=== PATIENT | female | born 1955 | race Caucasian/White ===

== ENCOUNTER 2019-05-21 04:01 | Emergency (ER) | payer BC ==
[~2019-05-21] VITALS: Ht 167.6 cm; Wt 72.7 kg
[2019-05-21] MEDS ORDERED: SYNT137T7 PO (04:14)
[2019-05-21] MEDS ORDERED: LIPI20TA PO (04:14)
[2019-05-21 04:26] LABS: BASO % 0.9 % (0.0-1.0); EOS # 0.2 10^3/uL (0.0-0.50); HEMATOCRIT 42.5 % (36.0-47.0); HEMOGLOBIN 14.2 g/dl (12.0-15.5); LYMPH # 1.8 10^3/uL (1.5-4.5); LYMPH % 51.7 % (24.0-44.0); MEAN CORPUSCULAR HGB CONC 33.4 g/dl (32.0-36.5); MEAN CORPUSCULAR VOLUME 95.7 fl (80.0-96.0); MONO # 0.4 10^3/uL (0.0-0.8); MONO % 9.9 % (0.0-5.0); NEUTROPHILS # 1.1 10^3/uL (1.8-7.7); NEUTROPHILS % 31.2 % (36.0-66.0); PLATELET COUNT, AUTOMATED 226 10^3/uL (150-450); RED BLOOD COUNT 4.44 10^6/uL (4.00-5.40); WHITE BLOOD COUNT 3.5 10^3/uL (4.0-10.0)
[2019-05-21 04:36] LABS: INR 0.9; PROTHROMBIN TIME 11.9 SECONDS (11.8-14.0)
[2019-05-21 05:02] LABS: ALBUMIN 3.9 GM/DL (3.2-5.2); ALT/SGPT 34 U/L (12-78); BILIRUBIN,TOTAL 0.3 MG/DL (0.2-1.0); BLOOD UREA NITROGEN 20 MG/DL (7-18); CALCIUM LEVEL 8.7 MG/DL (8.8-10.2); CARBON DIOXIDE LEVEL 27 MEQ/L (21-32); CHLORIDE LEVEL 109 MEQ/L (98-107); CK-MB VALUE MASS 1.5 NG/ML (<3.6); CPK CREATINE PHOSPHOKINASE 93 U/L (26-192); CREATININE FOR GFR 0.85 MG/DL (0.55-1.30); GLOMERULAR FILTRATION RATE > 60.0 (>45); GLUCOSE, FASTING 92 MG/DL (70-100); LIPASE 186 U/L (73-393); MB/CK RELATIVE INDEX 1.61 (< OR =4); POTASSIUM SERUM 3.8 MEQ/L (3.5-5.1); SODIUM LEVEL 143 MEQ/L (136-145); TOTAL PROTEIN 6.9 GM/DL (6.4-8.2); TROPONIN I < 0.02 NG/ML (< 0.10)
[2019-05-21] MEDS ORDERED: ASPIRIN 81 MG CHEW TABLET PO ONE (06:00)
[2019-05-21] MEDS ORDERED: ISOVUE-370 76% 100ML VIAL (Q9967) As Ordered ONE (06:05)
--- NOTE | 2019-05-21 06:43 | REPVR ---
EXAM: CT Angiography Chest With Contrast EXAM DATE/TIME: 05/21/2019 6:00 AM CLINICAL HISTORY: 63 years old, female; Chest pain; Type not specified; Additional info: Chest pain R/O pe TECHNIQUE: Imaging protocol: Axial computed tomographic angiography images of the chest with intravenous contrast using CT angiography protocol. Coronal and sagittal reformatted images were created and reviewed. 3D rendering: MIP reconstructed images were created and reviewed. Radiation optimization: All CT scans at this facility use at least one of these dose optimization techniques: automated exposure control; mA and/or kV adjustment per patient size (includes targeted exams where dose is matched to clinical indication); or iterative reconstruction. Contrast material: ISO;Contrast volume: 75 ml;Contrast route: AC; COMPARISON: CR PORTABLE CHEST X-RAY 05/21/2019 4:19 AM FINDINGS: Pulmonary arteries: The main pulmonary artery measures 22 mm. No pulmonary embolism is identified. Aorta: The ascending thoracic aorta measures 30 mm. Other arteries: The left vertebral artery originates directly from the arch. Lungs: Right middle lobe irregular only nodule which appears to branch with only one feeding vessel and measures approximately 10 mm. Pleural space: Unremarkable. No pneumothorax. No pleural effusion. Heart: Unremarkable. No cardiomegaly. No pericardial effusion. Stomach and bowel: Colonic diverticulosis. Lymph nodes: Unremarkable. No enlarged lymph nodes. Bones/joints: Unremarkable. No acute fracture. Soft tissues: Unremarkable. IMPRESSION: 1. Colonic diverticulosis. 2. Right middle lobe noncalcified irregular nodule measuring approximately 10 mm. For both low risk and high risk patients, consider CT at 3 months, PET/CT or biopsy. (Riddhi et al., Fleischner Society, 2017). 3. No pulmonary embolism is identified. Electronically signed by: Braden James On 05/21/2019 06:43:01 AM
--- NOTE | 2019-05-21 08:17 | ECGEPIP ---
[facility] - ED Test Date: 2019-05-21 Pat Name: JEFF VOGEL Department: Room: - Gender: Female Building Operator: : 1955 Requested By: YOLANDA Root Order Number: [id number] Reading MD: Pamela Clayton Measurements Intervals [place] Rate: 86 P: 23 MO: 138 QRS: 2 QRSD: 96 T: 12 QT: 375 QTc: 451 Interpretive Statements SINUS RHYTHM MINIMAL ST DEPRESSION No prior Electronically Signed on 05-21-2019 8:16:57 EDT by Pamela Clayton
[2019-05-21 10:44] LABS: CK-MB VALUE MASS 1.4 NG/ML (<3.6); CPK CREATINE PHOSPHOKINASE 75 U/L (26-192); MB/CK RELATIVE INDEX 1.87 (< OR =4); TROPONIN I < 0.02 NG/ML (< 0.10)
[2019-05-21] MEDS ORDERED: ASPI81TA85 PO (11:00)
[2019-05-21 11:33] VITALS: BP 128/87
--- NOTE | 2019-05-21 12:50 | ECGEPIP ---
[facility] - ED Test Date: 2019-05-21 Pat Name: JEFF VOGEL Department: Room: - Gender: Female Privacy Officer: : 1955 Requested By: YOLANDA Root Order Number: [id number] Reading MD: Pamela Clayton Measurements Intervals [place] Rate: 67 P: 11 UT: 131 QRS: -9 QRSD: 102 T: 6 QT: 387 QTc: 409 Interpretive Statements SINUS RHYTHM NSTTW abnormalities DECREASED RATE 05/21/19 4:08 Electronically Signed on 05-21-2019 12:49:54 EDT by Pamela Clayton
--- NOTE | 2019-05-24 15:01 | REP ---
REASON FOR EXAM: Chest pain. PRIORS: None. The technique utilized in obtaining the radiograph has magnified the cardiac silhouette and accentuated the interstitial markings. In the superior right middle lobe, there is a minimal ovoid-shaped opacity. The lung koehler are otherwise clear and the heart is not enlarged. The pleural angles are sharp and the osseous structures are within normal limits. IMPRESSION: Subtle opacity in the right middle lobe superiorly. Consider CT.? Electronically Signed by Yandel Carranza DO 05/24/2019 05:07 P
--- NOTE | 2019-05-28 20:50 | ED PDOC ---
Post-Departure Follow-Up certified letter sent to pt re formal read of cta. needs fu for pulmonary nodule . find out who is pt's pcp and fax. if no pcp refer to [facility] and fax tis report. Isai Rios MD May 28, 2019 20:50
== END 2019-05-21 11:52 | disposition home or self-care (01) ==
LOC: M ED 04:01
DX: R07.9 Chest pain, unspecified (principal); E78.5 Hyperlipidemia, unspecified; Z79.899 Other long term (current) drug therapy; Z79.890 Hormone replacement therapy; Z79.82 Long term (current) use of aspirin
CPT/HCPCS: 36415; 71045; 71275; 80053; 82550; 82553; 83690; 84484; 85025; 85610; 93005; 93041; 94760; 99285; Q9967